=== PATIENT | female | born 1955 | race African-American/Black ===

== ENCOUNTER → 2017-06-18 | Outpatient (CLI) | payer BC ==
[2017-06-18 16:34] LABS: ABSOLUTE BASOPHILS # (AUTO) 0.1 10^3/uL (0.0-0.2); ABSOLUTE EOSINOPHILS # (AUTO) 0.3 10^3/uL (0.0-0.6); ABSOLUTE LYMPHOCYTES (AUTO) 3.7 10^3/uL (0.5-4.7); ABSOLUTE MONOCYTES (AUTO) 0.5 10^3/uL (0.1-1.4); ABSOLUTE NEUT (AUTO) 3.9 10^3/uL (1.7-8.2); EOSINOPHILS % (AUTO) 3.3 % (0-6); HEMATOCRIT 42.6 % (36.0-47.0); HEMOGLOBIN 14.5 g/dL (12.0-15.5); HGB HCT DIFFERENCE 0.9; LYMPHOCYTES % (AUTO) 43.8 % (13-45); MEAN CORPUSCULAR HEMOGLOBIN 29.6 pg (27.0-33.4); MEAN CORPUSCULAR VOLUME 87 fl (80-97); MONOCYTES % (AUTO) 6.4 % (3-13); RED BLOOD COUNT 4.89 10^6/uL (3.72-5.28); RED CELL DISTRIBUTION WIDTH 13.8 % (11.5-14.0); SEGMENTED NEUTROPHILS % (AUTO) 45.5 % (42-78); WHITE BLOOD COUNT 8.6 10^3/uL (4.0-10.5)
[2017-06-18 16:55] LABS: ALANINE AMINOTRANSFERASE 26 U/L (9-52); ALBUMIN 4.4 g/dL (3.5-5.0); ALKALINE PHOSPHATASE 98 U/L (38-126); ANION GAP 12 (5-19); ASPARTATE AMINO TRANSFERASE 21 U/L (14-36); BILIRUBIN,DIRECT 0.3 mg/dL (0.0-0.4); BILIRUBIN,TOTAL 0.8 mg/dL (0.2-1.3); BLOOD UREA NITROGEN 16 mg/dL (7-20); CALCIUM 9.6 mg/dL (8.4-10.2); CARBON DIOXIDE 29 mmol/L (22-30); CHLORIDE 103 mmol/L (98-107); GLUCOSE 86 mg/dL (75-110); POTASSIUM 4.3 mmol/L (3.6-5.0); SODIUM 143.9 mmol/L (137-145); TOTAL PROTEIN 7.8 g/dL (6.3-8.2)
[2017-06-19 11:36] LABS: CHOLESTEROL 253.35 mg/dL (0-200); Direct HDL 60 mg/dL (>40); TRIGLYCERIDES 178 mg/dL (<150)
[2017-06-19 11:47] LABS: DIRECT LDL 144 mg/dL (<100)
[2017-06-19 11:51] LABS: VLDL CHOLESTEROL 35.6 mg/dL (10-31)
== END ==
LOC: LAB 15:59
PROVIDERS: ATTEND Internal Medicine Geriatric Medicine
DX: I10 Essential (primary) hypertension (principal); E78.5 Hyperlipidemia, unspecified
CPT/HCPCS: 36415; 80053; 80061; 85025

== ENCOUNTER → 2017-10-18 | Outpatient (CLI) | payer BC ==
[2017-10-18 13:17] LABS: FREE T3 3.94 pg/mL (2.77-5.27)
[2017-10-18 13:30] LABS: THYROID STIMULATING HORMONE 0.86 uIU/mL (0.47-4.68)
== END ==
LOC: LAB 12:18
PROVIDERS: ATTEND Internal Medicine Geriatric Medicine
DX: E04.1 Nontoxic single thyroid nodule (principal)
CPT/HCPCS: 36415; 84439; 84443; 84481

== ENCOUNTER → 2017-10-22 | Outpatient (CLI) | payer BC ==
--- NOTE | 2017-10-22 12:06 | RADIOLOGY REPORT (SQ) ---
EXAM DESCRIPTION: U/S THYROID/SFT TISS HD NECK COMPLETED DATE/TIME: 10/22/2017 11:51 am REASON FOR STUDY: NONTOXIC SINGLE THYROID NODULE (E04.1) E04.1 NONTOXIC SINGLE THYROID NODULE COMPARISON: None. TECHNIQUE: Dynamic and static huerta-scale images acquired of the thyroid gland. Selected additional c olor/power Doppler images recorded. All images stored to PACS. LIMITATIONS: None. FINDINGS: RIGHT LOBE: Right lobe thyroid is 5.1 by 1.7 by 1.7 cm in size. Heterogeneous echogenicit y. In the medial aspect of the right lobe thyroid extending into the isthmus, a 1.7 x 1.7 x 0.6 cm n odule is present. LEFT LOBE: Left lobe thyroid is 4.5 by 1.9 by 2 cm in size. Heterogeneous echogenicity. In the lowe r aspect left lobe thyroid, a 2.2 x 1.3 x 1.5 cm cystic nodule is present. A smaller 5 x 6 x 3 mm hy podense nodule is present in the left mid pole thyroid ISTHMUS: Normal size. Homogeneous echotexture. OTHER: No other significant finding. IMPRESSION: Normal size thyroid gland with a 1.7 cm nodule in the medial aspect right lobe thyroid a nd a 2.2 cm complex cysts in the lower pole left lobe thyroid. Fine-needle aspiration of these areas should be considered TECHNICAL DOCUMENTATION: JOB ID: [id number] [employer]- All Rights Reserved
== END ==
LOC: RAD 10:48
PROVIDERS: ATTEND Internal Medicine Geriatric Medicine
DX: E04.1 Nontoxic single thyroid nodule (principal)
CPT/HCPCS: 76536

== ENCOUNTER → 2017-11-06 | Day surgery (SDC) | payer BC ==
--- NOTE | 2017-11-06 16:18 | RADIOLOGY REPORT (SQ) ---
EXAM DESCRIPTION: U/S BIOPSY THYROID COMPLETED DATE/TIME: 11/06/2017 2:48 pm REASON FOR STUDY: NONTOXIC SINGLE THYROID NODULE E04.1 NONTOXIC SINGLE THYROID NODULE COMPARISON: None. TECHNIQUE: The procedure was discussed with the patient and written informed consent obtained. A ti meout was performed to confirm the procedure and patient's identity. The skin of the neck was preppe d and draped in sterile fashion and 5 mL lidocaine administered for local anesthesia. Under sonograp hic guidance, fine needle aspiration biopsy was performed of the mass in the left lobe of the thyroid . Using similar technique, fine-needle aspiration biopsy also performed of the mass in the right lob e of the thyroid. Two separate aspirations were performed for both biopsy procedures. Pathology territory manager general sales was p resent during the procedure to process the samples. Hemostasis was obtained with direct manual compr ession. There were no immediate complications. LIMITATIONS: None. FINDINGS: PATHOLOGY: Pending. IMPRESSION: ULTRASOUND-GUIDED BIOPSY PERFORMED OF MASSES IN THE RIGHT AND LEFT LOBES OF THE THYROID. PATHOLOGY PENDING AT THE TIME OF DICTATION. COMMENT: Patient medication list reviewed: Yes- Quality ID# [id number]:Eligible professional attests to doc umenting in the medical record they obtained, updated, or reviewed the patient's current medications. TECHNICAL DOCUMENTATION: JOB ID: [id number] [employer]- All Rights Reserved
== END ==
LOC: RAD 12:51
PROVIDERS: ATTEND Internal Medicine Geriatric Medicine
PROC: 0BBM3ZX Excision of Bilateral Lungs, Percutaneous Approach, Diagnostic (ICD-10-PCS; principal; 2017-11-06)
DX: E04.1 Nontoxic single thyroid nodule (principal)
CPT/HCPCS: 60100; 88173

== ENCOUNTER 2017-11-18 19:33 | Emergency (ER) | payer BC ==
--- NOTE | 2017-11-18 20:07 | ER Document Report ---
ED Medical Screen (RME) - General Chief Complaint: Arm Pain Stated Complaint: ARM AND NECK PAIN Time Seen by Provider: 11/18/17 20:06 Notes: Patient presents with left-sided arm neck and face pain. She states she did have a heart catheterization approximately 20 years ago that was negative but no recent evaluations. TRAVEL OUTSIDE OF THE [place] IN LAST 30 DAYS: No - Related Data Allergies/Adverse Reactions: No Known Allergies Allergy (Unverified 06/25/12 21:58) Home Medications: Current Home Medications Multivit with Calcium,Iron,Min [Multiple Vitamins For Women] 1 each PO DAILY [History] Past Medical History - Social History Chew tobacco use (# tins/day): No Frequency of alcohol use: None Drug Abuse: None - Past Medical History Cardiac Medical History: Reports: Hx Hypercholesterolemia, Hx Hypertension Renal/ Medical History: Denies: Hx Peritoneal Dialysis Past Surgical History: Reports: Hx Cardiac Catheterization, Hx Section - Immunizations Hx Diphtheria, Pertussis, Tetanus Vaccination: No Physical Exam - Vital signs Vitals: Temp Pulse Resp BP Pulse Ox 97.9 F 66 16 175/82 H 97 11/18/17 19:47 11/18/17 19:47 11/18/17 19:47 11/18/17 19:47 11/18/17 19:47 Course - Vital Signs Vital signs: Temp Pulse Resp BP Pulse Ox 97.9 F 66 16 175/82 H 97 11/18/17 19:47 11/18/17 19:47 11/18/17 19:47 11/18/17 19:47 11/18/17 19:47
[2017-11-18 20:25] LABS: ABSOLUTE EOSINOPHILS # (AUTO) 0.3 10^3/uL (0.0-0.6); ABSOLUTE LYMPHOCYTES (AUTO) 3.4 10^3/uL (0.5-4.7); ABSOLUTE MONOCYTES (AUTO) 0.5 10^3/uL (0.1-1.4); ABSOLUTE NEUT (AUTO) 2.8 10^3/uL (1.7-8.2); BASOPHILS % (AUTO) 0.7 % (0-2); EOSINOPHILS % (AUTO) 4.3 % (0-6); HEMATOCRIT 41.3 % (36.0-47.0); HEMOGLOBIN 14.4 g/dL (12.0-15.5); HGB HCT DIFFERENCE 1.9; LYMPHOCYTES % (AUTO) 48.5 % (13-45); MEAN CORPUSCULAR HEMOGLOBIN 30.5 pg (27.0-33.4); MEAN CORPUSCULAR VOLUME 87 fl (80-97); MONOCYTES % (AUTO) 6.5 % (3-13); RED BLOOD COUNT 4.74 10^6/uL (3.72-5.28); RED CELL DISTRIBUTION WIDTH 13.4 % (11.5-14.0); WHITE BLOOD COUNT 7.1 10^3/uL (4.0-10.5)
[2017-11-18 20:50] LABS: ALANINE AMINOTRANSFERASE 32 U/L (9-52); ALBUMIN 4.4 g/dL (3.5-5.0); ALKALINE PHOSPHATASE 96 U/L (38-126); ANION GAP 9 (5-19); ASPARTATE AMINO TRANSFERASE 25 U/L (14-36); BILIRUBIN,DIRECT 0.1 mg/dL (0.0-0.4); BLOOD UREA NITROGEN 14 mg/dL (7-20); CALCIUM 9.4 mg/dL (8.4-10.2); CARBON DIOXIDE 34 mmol/L (22-30); CHLORIDE 102 mmol/L (98-107); CREATININE RESULT 0.82 mg/dL (0.52-1.25); GLUCOSE 94 mg/dL (75-110); POTASSIUM 3.7 mmol/L (3.6-5.0); SODIUM 144.7 mmol/L (137-145); TOTAL PROTEIN 7.2 g/dL (6.3-8.2)
[2017-11-18] MEDS ORDERED: ASPIRIN 81 MG TABLET, CHEWABLE PO ONE (22:12)
--- NOTE | 2017-11-18 22:12 | ER Document Report ---
ED General - General Chief Complaint: Arm Pain Stated Complaint: ARM AND NECK PAIN Time Seen by Provider: 11/18/17 20:06 Notes: Patient is a 62-year-old female who presents with left-sided face, neck, and arm pain and paresthesias that started abruptly at approximately 6:30 PM today and have now spontaneously resolved. She states that the pain was a throbbing, aching, pins and needles sensation most localized to her left dorsal forearm. She states that the symptoms of spontaneously resolved without intervention. She is uncertain of what triggered or worsened the symptoms. She denies a history of similar symptoms in the past. She denies any history of RI or stroke in the past. She has not seen a primary care doctor regarding today's concerns. She denies any associated shortness of breath, vomiting or diaphoresis. No chest pain. She denies any headache or altered mental status. TRAVEL OUTSIDE OF THE [place] IN LAST 30 DAYS: No - Related Data Allergies/Adverse Reactions: No Known Allergies Allergy (Unverified 06/25/12 21:58) Past Medical History - General Information source: Patient - Social History Smoking Status: Never Smoker Chew tobacco use (# tins/day): No Frequency of alcohol use: None Drug Abuse: None Lives with: Spouse/Significant other Family History: Reviewed & Not Pertinent Patient has suicidal ideation: No Patient has homicidal ideation: No - Past Medical History Cardiac Medical History: Reports: Hx Hypercholesterolemia, Hx Hypertension Renal/ Medical History: Denies: Hx Peritoneal Dialysis Past Surgical History: Reports: Hx Cardiac Catheterization, Hx Section - Immunizations Hx Diphtheria, Pertussis, Tetanus Vaccination: No Review of Systems - Review of Systems Notes: Constitutional: Negative for fever. HENT: Negative for sore throat. Eyes: Negative for visual changes. Cardiovascular: Negative for chest pain. Respiratory: Negative for shortness of breath. Gastrointestinal: Negative for abdominal pain, vomiting or diarrhea. Genitourinary: Negative for dysuria. Musculoskeletal: Negative for back pain. Skin: Negative for rash. Neurological: Negative for headaches, positive for paresthesias of the left upper extremity and face 10 point ROS negative except as marked above and in HPI. Physical Exam - Vital signs Vitals: Temp Pulse Resp BP Pulse Ox 97.9 F 66 16 175/82 H 97 11/18/17 19:47 11/18/17 19:47 11/18/17 19:47 11/18/17 19:47 11/18/17 19:47 Interpretation: Hypertensive Notes: PHYSICAL EXAMINATION: GENERAL: Well-appearing, well-nourished and in no acute distress. HEAD: Atraumatic, normocephalic. EYES: Pupils equal round and reactive to light, extraocular movements intact, sclera anicteric, conjunctiva are normal. ENT: nares patent, oropharynx clear without exudates. Moist mucous membranes. NECK: Normal range of motion, supple without lymphadenopathy LUNGS: Breath sounds clear to auscultation bilaterally and equal. No wheezes rales or rhonchi. HEART: Regular rate and rhythm without murmurs ABDOMEN: Soft, nontender, normoactive bowel sounds. No guarding, no rebound. No masses appreciated. EXTREMITIES: Normal range of motion, no pitting or edema. No cyanosis. NEUROLOGICAL: Face symmetric. Tongue protrudes midline. Extraocular motions intact. Pupils are 2 mm and equally reactive. Normal speech, normal gait. 5 out of 5 strength in both the distal and proximal upper and lower extremities bilaterally. Sensation is grossly intact throughout. Finger to nose testing normal. Pronator drift normal. PSYCH: Normal mood, normal affect. SKIN: Warm, Dry, normal turgor, no rashes or lesions noted. Course - Re-evaluation Re-evalutation: 11/18/17 22:09 Patient presents with left arm and facial pain that has now resolved. The patient's characterization of the symptoms is not consistent with a transient ischemic attack as she describes it more of a pins and needle sensation as well as a throbbing pain most notably to her left forearm. She denies any associated symptoms clinic facial droop, dysarthria, aphasia, weakness, or altered sensorium in any other area of her body. Her symptoms have spontaneously resolved making an acute stroke by definition excluded. Her neuro exam at the time of my assessment is completely normal with an NIH stroke scale of 0. Although TIA is a possibility, I have overall low clinical suspicion for that diagnosis as the patient describes her symptoms as being painful rather than the loss of sensation which goes against an acute stroke. An atypical presentation of ACS is also a consideration. Patient did not have any chest pain, nausea, vomiting or diaphoresis but did have left upper extremity discomfort. The facial component of her symptoms would be quite atypical for this. However, will obtain serial troponins to exclude an infarction event. If this remains normal will plan for discharge with recommendations for an outpatient carotid Doppler to be completed. The patient and her family at the bedside are in agreement with this plan. I have also encouraged the patient to begin taking a daily aspirin as she should already be taking this medication given her risk factors. 11/18/17 23:49 Delta troponin remains negative. Patient remains asymptomatic. At this time will discharge with return precautions and follow-up recommendations. Verbal discharge instructions given a the bedside and opportunity for questions given. Medication warnings reviewed. Patient is in agreement with this plan and has verbalized understanding of return precautions and the need for primary care follow-up in the next 24-72 hours. - Vital Signs Vital signs: Temp Pulse Resp BP Pulse Ox 97.9 F 64 16 148/83 H 99 11/18/17 19:47 11/18/17 23:08 11/18/17 23:08 11/18/17 23:08 11/18/17 23:08 - Laboratory Result Diagrams: 11/18/17 20:08 11/18/17 20:08 Laboratory results interpreted by me: 11/18/17 11/18/17 20:08 20:08 Seg Neutrophils % 40.0 L Lymphocytes % 48.5 H Carbon Dioxide 34 H - EKG Interpretation by Me Additional EKG results interpreted by me: 11/18/17 23:50 Normal sinus rhythm. Rate 67. No ST elevations or depressions. QTC is 439. Discharge - Discharge Clinical Impression: Left arm pain, Paresthesias Condition: Good Disposition: HOME, SELF-CARE Additional Instructions: Your labs are all normal today. The exact cause of your symptoms is uncertain at this time but does not appear to be related to any life-threatening cause. Please follow-up with your primary care doctor as scheduled tomorrow and please request a carotid Doppler study to be completed. Begin taking an aspirin 81 mg daily. Return if you develop chest pain, shortness of breath, vomiting, recurrence of your symptoms, or any other symptoms that are worrisome to you. Referrals: JAVIER CORONA MD [Primary Care Provider] - Follow up as needed
[2017-11-18 23:09] VITALS: BP 148/83
--- NOTE | 2017-11-19 07:57 | EKG REPORT ---
SEVERITY:- BORDERLINE ECG - SINUS RHYTHM PROBABLE LEFT ATRIAL ABNORMALITY : Confirmed by: Timur Rehman MD 19-Nov-2017 07:56:23
== END 2017-11-19 00:07 | disposition home or self-care (01) ==
LOC: ER 19:33
DX: M79.602 Pain in left arm (principal); R20.2 Paresthesia of skin; R51 Headache; M54.2 Cervicalgia; I10 Essential (primary) hypertension
CPT/HCPCS: 36415; 80053; 84484; 85025; 93005; 93010; 99284

== ENCOUNTER → 2017-11-21 | Outpatient (CLI) | payer BC ==
--- NOTE | 2017-11-21 10:19 | RADIOLOGY REPORT (SQ) ---
EXAM DESCRIPTION: CAROTID DOPPLER COMPLETED DATE/TIME: 11/21/2017 8:27 am REASON FOR STUDY: PARASTHESIA OF SKIN R20.2 PARESTHESIA OF SKIN COMPARISON: None. TECHNIQUE: Grayscale ultrasound, Doppler velocity and spectra, and color Doppler images acquired of the extra-cranial carotid and vertebral arteries. Images stored on PACS. LIMITATIONS: None. FINDINGS: RIGHT CAROTID CCA Velocities: Within normal limits. ICA Velocities Peak systolic 0.7 m/s. End diastolic 0.26 m/s. Proximal ICA/CCA peak systolic ratio 0.8. Spectra normal. No significant plaque. LEFT CAROTID CCA Velocities: Within normal limits. ICA Velocities Peak systolic 0.6 m/s. End diastolic 0.22 m/s. Proximal ICA/CCA peak systolic ratio 1.0. Spectra normal. No significant plaque. VERTEBRAL ARTERIES: Antegrade flow. Normal waveforms. SUBCLAVIAN ARTERIES: Not examined OTHER: No other significant finding. IMPRESSION: NO HEMODYNAMICALLY SIGNIFICANT STENOSIS. COMMENT: Quality ID #[id number]: Velocity criteria are extrapolated from the diameter data as defined by t he Society of Radiologists in Ultrasound Consensus Conference. Radiology 2003: 229; 340-346. TECHNICAL DOCUMENTATION: JOB ID: [id number] [employer]- All Rights Reserved
== END ==
LOC: SP 07:45
PROVIDERS: ATTEND Internal Medicine Geriatric Medicine
DX: R20.2 Paresthesia of skin (principal)
CPT/HCPCS: 93880

== ENCOUNTER → 2017-11-26 | Outpatient (CLI) | payer BC ==
--- NOTE | 2017-11-26 10:29 | WOMENS IMAGING REPORT ---
EXAM DESCRIPTION: 3D SCREENING MAMMO BILAT COMPLETED DATE/TIME: 11/26/2017 9:51 am REASON FOR STUDY: SCREENING MAMMO Z12.31 ENCNTR SCREEN MAMMOGRAM FOR MALIGNANT NEOPLASM OF DRE COMPARISON: 07/30/2016 and 08/31/2014. TECHNIQUE: Standard craniocaudal and mediolateral oblique views of each breast recorded using digita l acquisition and breast tomosynthesis. LIMITATIONS: None. FINDINGS: No masses, calcifications or architectural distortion. No areas of suspicion. Read with the assistance of CAD. .[facility] - R2 [employer] Version 1.3 .[facility] Imaging - R2 [employer] Version 1.[address] .[facility] Imaging - R2 [employer] Version 2.4 .[facility] [place] [employer] Version 2.4 .[facility] - R2 [employer] Worker Version 9.2 IMPRESSION: NORMAL MAMMOGRAM. BIRADS 1. BREAST DENSITY: b. There are scattered areas of fibroglandular density. BIRAD: 1 NEGATIVE RECOMMENDATION: ROUTINE SCREENING COMMENT: The patient has been notified of the results by letter per SA requirements. Additional no tification policies are in place for contacting patient with suspicious or incomplete findings. Quality ID #[id number]: The [employer] recommends an annual screening mammogram for women aged 40 years or over. This facility utilizes a reminder system to ensure that all patients receive reminder letters, and/or direct phone calls for appointments. This includes reminders for routine scr eening mammograms, diagnostic mammograms, or other Breast Imaging Interventions when appropriate. Th is patient will be placed in the appropriate reminder system. The [employer] (ACR) has developed recommendations for screening MRI of the breast s in certain patient populations, to be used in conjunction with mammography. Breast MRI surveillanc e may be appropriate for women with more than 20% lifetime risk of developing breast cancer as deter mined by genetic testing, significant family history of the disease, or history of mantle radiation f or Hodgkins Disease. ACR Practice Guidelines 2008. DBT Technology DBT is a type of tomographic mammography. With conventional mammography, overlapping breast tissue ma y make lesions difficult to detect, even with good compression. DBT uses an x-ray tube that rotates a round the breast, taking images at different angles. These images are then combined to create thin sl ices of the breast that the radiologist can view as a 3D reconstruction. The [employer] unit can perform full-field digital mammograms (2D imaging); or DBT (3D imaging); or both, in a combination mode that quickly performs both the mammogram and the tomosynthesis scan while the breast is still compressed. PQRS 6045F: Fluoroscopic imaging is not utilized for breast tomosynthesis. TECHNICAL DOCUMENTATION: FINDING NUMBER: (1) ASSESSMENT: (1) JOB ID: [id number] [employer]- All Rights Reserved
== END ==
LOC: WI 09:34
PROVIDERS: ATTEND Internal Medicine Geriatric Medicine
DX: Z12.31 Encounter for screening mammogram for malignant neoplasm of breast (principal)
CPT/HCPCS: 77063; G0202; 77067

== ENCOUNTER 2019-07-12 17:30 | Inpatient (IN) | payer BC ==
[2019-07-12] MEDS ORDERED: ONDANSETRON HCL INJ/PF 4 MG/2 ML SDV IV PRN (18:03)
[2019-07-12 19:28] LABS: HEMATOCRIT 38.7 % (36.0-47.0); HEMOGLOBIN 13.3 g/dL (12.0-15.5); MEAN CORPUSCULAR HEMOGLOBIN 29.4 pg (27.0-33.4); MEAN CORPUSCULAR HGB CONC 34.5 g/dL (32.0-36.0); MEAN CORPUSCULAR VOLUME 85 fl (80-97); PLATELET COUNT 268 10^3/uL (150-450); RED BLOOD COUNT 4.54 10^6/uL (3.72-5.28); RED CELL DISTRIBUTION WIDTH 14.1 % (11.5-14.0); WHITE BLOOD COUNT 16.4 10^3/uL (4.0-10.5)
[2019-07-12] MEDS ORDERED: VANCOMYCIN HCL INJ 500 MG VIAL IV SCH (19:30)
[2019-07-12 19:43] LABS: ALBUMIN 4.2 g/dL (3.5-5.0); ALKALINE PHOSPHATASE 99 U/L (38-126); ANION GAP 11 (5-19); ASPARTATE AMINO TRANSFERASE 23 U/L (14-36); BILIRUBIN,DIRECT 0.2 mg/dL (0.0-0.4); BLOOD UREA NITROGEN 19 mg/dL (7-20); CALCIUM 9.1 mg/dL (8.4-10.2); CARBON DIOXIDE 30 mmol/L (22-30); CHLORIDE 97 mmol/L (98-107); GLUCOSE 123 mg/dL (75-110); POTASSIUM 3.4 mmol/L (3.6-5.0); TOTAL PROTEIN 7.1 g/dL (6.3-8.2)
[2019-07-12 19:54] LABS: ABSOLUTE LYMPHOCYTES# (MANUAL) 0.7 10^3/uL (0.5-4.7); ABSOLUTE MONOCYTES # (MANUAL) 0.2 10^3/uL (0.1-1.4); BAND NEUTROPHILS % (MANUAL) 3 % (3-5); BASOPHILS % (MANUAL) 0 % (0-2); EOSINOPHILS % (MANUAL) 0 % (0-6); LYMPHOCYTES % (MANUAL) 4 % (13-45); MONOCYTES % (MANUAL) 1 % (3-13); RBC MORPHOLOGY COMMENT NORMO-CYTIC/CHROMIC; SEGMENTED NEUTROPHILS % (MAN) 92 % (42-78); TOTAL CELLS COUNTED 100
[2019-07-12 19:55] LABS: PLATELET COMMENT ADEQUATE
[2019-07-12 23:48] LABS: APPEARANCE,URINE CLEAR; BILIRUBIN,URINE NEGATIVE (NEGATIVE); COLOR,URINE YELLOW; GLUCOSE, URINE NEGATIVE (NEGATIVE); KETONES,URINE NEGATIVE (NEGATIVE); LEUKOCYTE ESTERASE,URINE NEGATIVE (NEGATIVE); NITRITE,URINE NEGATIVE (NEGATIVE); PROTEIN,URINE NEGATIVE (NEGATIVE); URINE SPECIFIC GRAVITY 1.017; UROBILINOGEN,URINE NEGATIVE mg/dL (<2.0)
[2019-07-13] MEDS: VANCOMYCIN HCL INJ 500 MG VIAL PO SCH ×5 (00:22→23:37)
[2019-07-13] MEDS ORDERED: CEFEPIME 1 GM/D5W RTU 1 GM/50 ML RTUPB IV ONE (00:30)
--- NOTE | 2019-07-13 00:59 | PDOC H&P ---
History of Present Illness Admission Date/PCP: 07/12/19 17:30 JAVIER CORONA MD Patient complains of: Fever, chills, Nausea, Vomiting, Diarrhea History of Present Illness: JENNIFER HERNÁNDEZ is a 64 year old female known to my practice who presented to the office earlier today with recurrent intermittent episodes of chills, fever, and diaphoresis mostly during the night with daytime fatigue and tiredness. Patient reported development of diarrhea with multiple episodes of watery stool over the last several days. She was recently treated with antibiotic for po ssible community acquired pneumonia. She reported feeling better but upon completion of her antibiotic therapy her symptoms started again with intermittent fever and chills. She denied any significant coughing or sputum production. She denied any chest pain or shortness of breath. Her initial evalua tion in the office revealed significant leukocytosis with left shift. She was advised hospitalization for possible failure of outpatient oral antibiotic therapy and concern for possible antibiotic associated diarrhea. Her morbidities include hypertension, hyperlipidemia, chronic gouty arthritis. Past Medical History Cardiac Medical History: Reports: Hyperlipidema, Hypertension Musculoskeltal Medical History: Reports: Gout Skin Medical History: Reports: None Psychiatric Medical History: Reports: None Hematology: Reports: None Past Surgical History Past Surgical History: Reports: Cardiac Catheterization, Section Social History Smoking Status: Never Smoker Frequency of Alcohol Use: None Hx Recreational Drug Use: No Drugs: None Hx Prescription Drug Abuse: No - Advance Directive Resuscitation Status: Full Code Family History Family History: Reviewed & Not Pertinent Parental Family History Reviewed: Yes Children Family History Reviewed: Yes Sibling(s) Family History Reviewed.: Yes Medication/Allergy Allergies/Adverse Reactions: No Known Allergies Allergy (Unverified 06/25/12 21:58) Review of Systems Constitutional: PRESENT: chills, fatigue, fever(s), night sweats Eyes: ABSENT: visual disturbances Ears: ABSENT: hearing changes Nose, Mouth, and Throat: ABSENT: as per HPI, headache(s), mouth pain, sore throat, vertigo, other Cardiovascular: ABSENT: chest pain, dyspnea on exertion, edema, orthropnea, palpitations Respiratory: ABSENT: cough, hemoptysis Gastrointestinal: PRESENT: diarrhea, nausea, vomiting Genitourinary: ABSENT: dysuria, hematuria Musculoskeletal: ABSENT: joint swelling Integumentary: ABSENT: rash, wounds Neurological: ABSENT: abnormal gait, abnormal speech, confusion, dizziness, focal weakness, syncope Psychiatric: ABSENT: anxiety, depression, homidical ideation, suicidal ideation Endocrine: ABSENT: cold intolerance, heat intolerance, polydipsia, polyuria Hematologic/Lymphatic: ABSENT: easy bleeding, easy bruising, lymphadenopathy Allergic/Immunologic: ABSENT: seasonal rhinorrhea Physical Exam Vital Signs: Temp Pulse Resp BP Pulse Ox 99.7 F 95 17 147/67 H 98 07/12/19 21:01 07/12/19 21:01 07/12/19 21:01 07/12/19 21:01 07/12/19 21:01 General appearance: PRESENT: obese Head exam: PRESENT: atraumatic, normocephalic Eye exam: PRESENT: conjunctiva pink, EOMI, PERRLA. ABSENT: scleral icterus Ear exam: PRESENT: normal external ear exam Mouth exam: PRESENT: moist Throat exam: ABSENT: post pharyngeal erythema, tonsillar erythema, tonsillar exudate, tonsillogmegaly, other Neck exam: PRESENT: full ROM. ABSENT: carotid bruit, JVD, lymphadenopathy, thyromegaly Respiratory exam: PRESENT: clear to auscultation jefry, decreased breath sounds - at lung bases Cardiovascular exam: PRESENT: RRR, +S1, +S2. ABSENT: diastolic murmur, rubs, systolic murmur Vascular exam: ABSENT: pallor GI/Abdominal exam: PRESENT: normal bowel sounds, soft. ABSENT: distended, guarding, mass, organolmegaly, rebound, tenderness Rectal exam: PRESENT: deferred Extremities exam: ABSENT: pedal edema Musculoskeletal exam: PRESENT: deformity - related to multyiple joints involvement with arthritis Neurological exam: PRESENT: alert, awake, oriented to person, oriented to place, oriented to time, oriented to situation, CN II-XII grossly intact. ABSENT: motor sensory deficit Psychiatric exam: PRESENT: appropriate affect, normal mood. ABSENT: homicidal ideation, suicidal ideation Skin exam: PRESENT: dry, warm Results Laboratory Results: 07/12/19 19:15 07/12/19 19:15 07/12/19 07/12/19 07/12/19 19:15 19:15 21:20 WBC 16.4 H RBC 4.54 Hgb 13.3 Hct 38.7 MCV 85 MCH 29.4 MCHC 34.5 RDW 14.1 H Plt Count 268 Seg Neutrophils % Not Reportable Lymphocytes % Not Reportable Monocytes % Not Reportable Eosinophils % Not Reportable Basophils % Not Reportable Absolute Neutrophils Not Reportable Absolute Lymphocytes Not Reportable Absolute Monocytes Not Reportable Absolute Eosinophils Not Reportable Absolute Basophils Not Reportable Sodium 137.7 Potassium 3.4 L Chloride 97 L Carbon Dioxide 30 Anion Gap 11 BUN 19 Creatinine 1.17 Est GFR ( Amer) 56 L Est GFR (Non-Af Amer) 47 L Glucose 123 H Lactic Acid 2.3 H Calcium 9.1 Total Bilirubin 2.0 H AST 23 Alkaline Phosphatase 99 Total Protein 7.1 Albumin 4.2 Assessment & Plan - Diagnosis (1) Nausea, vomiting and diarrhea Is this a current diagnosis for this admission?: Yes Plan: See admitting attending physician orders for details about care plan. (2) Fever and chills Is this a current diagnosis for this admission?: Yes Plan: See admitting attending physician orders for details about care plan. (3) Probable sepsis Is this a current diagnosis for this admission?: Yes Plan: See admitting attending physician orders for details about care plan. (4) HTN (hypertension) Qualifiers: Hypertension type: essential hypertension Qualified Code(s): I10 - Essential (primary) hypertension Is this a current diagnosis for this admission?: Yes Plan: Continue pre-admission approved medication for management of blood pressure. (5) HLD (hyperlipidemia) Qualifiers: Hyperlipidemia type: unspecified Qualified Code(s): E78.5 - Hyperlipidemia, unspecified Is this a current diagnosis for this admission?: Yes Plan: Continue pre-admission approved medication for management of hyperlipidemia.. (6) Gout, chronic, without tophus Qualifiers: Gout site: unspecified site Is this a current diagnosis for this admission?: Yes Plan: Continue pre-admission approved medication for management of chronic gouty arthritis. - Time Time Spent: 50 to 70 Minutes Medications reviewed and adjusted accordingly: Yes Anticipated discharge: Home Within: Other - Inpatient Certification Based on my medical assessment, after consideration of the patient's comorbidities, presenting symptoms, or acuity I expect that the services needed warrant INPATIENT care.: Yes I certify that my determination is in accordance with my understanding of Medicare's requirements for reasonable and necessary INPATIENT services [42 CFR 412.3e].: Yes Medical Necessity: Significant Comorbidiites Make Outpatient Treatment Too Risky, Need Close Monitoring Due to Risk of Patient Decompensation, Need For IV Fluids, Need For Continuous Telemetry Monitoring, Need for IV Antibiotics, Risk of Complication if Not Cared For in Hospital, Risk of Diagnosis Which Will Require Inpatient Eval/Care/Monitoring Post Hospital Care: D/C Lathing Supervisor Documentation - Plan Summary Plan Summary: See admitting attending physician orders for details about care plan.
[2019-07-13] MEDS ORDERED: LEVOFLOXACIN 500 MG/D5W RTU 500 MG/100 ML RTUPB IV ONE (01:00)
[2019-07-13] MEDS: ACETAMINOPHEN 325 MG TABLET PO PRN (01:18)
[2019-07-13 06:15] LABS: ABSOLUTE LYMPHOCYTES (AUTO) 0.9 10^3/uL (0.5-4.7); ABSOLUTE MONOCYTES (AUTO) 0.4 10^3/uL (0.1-1.4); ABSOLUTE NEUT (AUTO) 7.5 10^3/uL (1.7-8.2); BASOPHILS % (AUTO) 0.4 % (0-2); EOSINOPHILS % (AUTO) 0.2 % (0-6); HEMOGLOBIN 12.5 g/dL (12.0-15.5); LYMPHOCYTES % (AUTO) 10.6 % (13-45); MEAN CORPUSCULAR HEMOGLOBIN 29.5 pg (27.0-33.4); MEAN CORPUSCULAR HGB CONC 34.8 g/dL (32.0-36.0); MEAN CORPUSCULAR VOLUME 85 fl (80-97); MONOCYTES % (AUTO) 4.8 % (3-13); PLATELET COUNT 217 10^3/uL (150-450); RED BLOOD COUNT 4.25 10^6/uL (3.72-5.28); TOTAL CELLS COUNTED % (AUTO) 100 %
[2019-07-13 06:45] LABS: ALBUMIN 3.5 g/dL (3.5-5.0); ALKALINE PHOSPHATASE 87 U/L (38-126); ANION GAP 8 (5-19); ASPARTATE AMINO TRANSFERASE 21 U/L (14-36); BILIRUBIN,DIRECT 0.4 mg/dL (0.0-0.4); BLOOD UREA NITROGEN 13 mg/dL (7-20); CALCIUM 8.6 mg/dL (8.4-10.2); CARBON DIOXIDE 27 mmol/L (22-30); CHLORIDE 104 mmol/L (98-107); GLUCOSE 106 mg/dL (75-110); POTASSIUM 3.3 mmol/L (3.6-5.0); TOTAL PROTEIN 6.3 g/dL (6.3-8.2)
--- NOTE | 2019-07-13 08:26 | RADIOLOGY REPORT (SQ) ---
EXAM DESCRIPTION: CHEST 2 VIEWS COMPLETED DATE/TIME: 07/12/2019 9:27 pm REASON FOR STUDY: Pneumonia COMPARISON: 06/25/2012 EXAM PARAMETERS: NUMBER OF VIEWS: two views TECHNIQUE: Digital Frontal and Lateral radiographic views of the chest acquired. RADIATION DOSE: NA LIMITATIONS: none FINDINGS: LUNGS AND PLEURA: No opacities, masses or pneumothorax. No pleural effusion. MEDIASTINUM AND HILAR STRUCTURES: No masses or contour abnormalities. HEART AND VASCULAR STRUCTURES: Heart normal size. No evidence for failure. BONES: No acute findings. HARDWARE: Prior cholecystectomy. OTHER: No other significant finding. IMPRESSION: No focal consolidation or other evidence of acute cardiopulmonary process. TECHNICAL DOCUMENTATION: JOB ID: [id number] [employer]- All Rights Reserved Reading location - IP/workstation name: [email or web address]
[2019-07-13] MEDS: NORMAL SALINE 1000 ML 1,000 ML IV PRN ×2 (10:40→22:08)
[2019-07-13] MEDS: CEFEPIME 1 GM/D5W RTU 1 GM/50 ML RTUPB IV SCH ×2 (10:40→22:07)
--- NOTE | 2019-07-13 18:13 | PDOC PROGRESS REPORT ---
Subjective Progress Note for:: 07/13/19 Subjective:: Patient had no diarrhea since admission. There was reported elevated temperature last night. She denied any chest pain or difficulty with breathing. No abdominal pain, nausea or vomiting. No dysuria or flank pain. She denied any headache or dizziness. No sinus pain or congestion. Reason For Visit: FAILED OUTPATIENT TREATMENT FOR PNEUMONIA Physical Exam Vital Signs: Temp Pulse Resp BP Pulse Ox 102.1 F H 87 17 134/66 H 97 07/13/19 00:59 07/13/19 07:00 07/13/19 00:59 07/13/19 00:59 07/13/19 00:59 Intake & Output 07/12/19 07/13/19 07/14/19 06:59 06:59 06:59 Intake Total 150 Balance 150 Weight 79.5 kg General appearance: PRESENT: no acute distress, obese Head exam: PRESENT: atraumatic, normocephalic Eye exam: PRESENT: conjunctiva pink, EOMI, PERRLA. ABSENT: scleral icterus Ear exam: PRESENT: normal external ear exam Mouth exam: PRESENT: moist Respiratory exam: PRESENT: chest wall tenderness Cardiovascular exam: PRESENT: RRR. ABSENT: diastolic murmur, rubs, systolic murmur Vascular exam: ABSENT: pallor GI/Abdominal exam: PRESENT: normal bowel sounds, soft. ABSENT: distended, guarding, mass, organolmegaly, rebound, tenderness Extremities exam: ABSENT: pedal edema Neurological exam: PRESENT: alert, awake, oriented to person, oriented to place, oriented to time, oriented to situation, CN II-XII grossly intact. ABSENT: motor sensory deficit Psychiatric exam: PRESENT: appropriate affect, normal mood. ABSENT: homicidal ideation, suicidal ideation Skin exam: PRESENT: dry, warm Results Laboratory Results: 07/13/19 05:55 07/13/19 05:55 07/12/19 07/12/19 07/12/19 19:15 19:15 21:20 WBC 16.4 H RBC 4.54 Hgb 13.3 Hct 38.7 MCV 85 MCH 29.4 MCHC 34.5 RDW 14.1 H Plt Count 268 Seg Neutrophils % Not Reportable Lymphocytes % Not Reportable Monocytes % Not Reportable Eosinophils % Not Reportable Basophils % Not Reportable Absolute Neutrophils Not Reportable Absolute Lymphocytes Not Reportable Absolute Monocytes Not Reportable Absolute Eosinophils Not Reportable Absolute Basophils Not Reportable Sodium 137.7 Potassium 3.4 L Chloride 97 L Carbon Dioxide 30 Anion Gap 11 BUN 19 Creatinine 1.17 Est GFR ( Amer) 56 L Est GFR (Non-Af Amer) 47 L Glucose 123 H Lactic Acid 2.3 H Calcium 9.1 Total Bilirubin 2.0 H AST 23 Alkaline Phosphatase 99 Total Protein 7.1 Albumin 4.2 Urine Color Urine Appearance Urine pH Ur Specific [place] Urine Protein Urine Glucose (UA) Urine Ketones Urine Blood Urine Nitrite Ur Leukocyte Esterase Urine WBC (Auto) Urine RBC (Auto) 07/12/19 07/13/19 07/13/19 23:15 01:27 05:55 WBC 9.0 RBC 4.25 Hgb 12.5 Hct 36.0 MCV 85 MCH 29.5 MCHC 34.8 RDW 14.0 Plt Count 217 Seg Neutrophils % 84.0 H Lymphocytes % 10.6 L Monocytes % 4.8 Eosinophils % 0.2 Basophils % 0.4 Absolute Neutrophils 7.5 Absolute Lymphocytes 0.9 Absolute Monocytes 0.4 Absolute Eosinophils 0.0 Absolute Basophils 0.0 Sodium Potassium Chloride Carbon Dioxide Anion Gap BUN Creatinine Est GFR ( Amer) Est GFR (Non-Af Amer) Glucose Lactic Acid 1.1 Calcium Total Bilirubin AST Alkaline Phosphatase Total Protein Albumin Urine Color YELLOW Urine Appearance CLEAR Urine pH 6.0 Ur Specific [place] 1.017 Urine Protein NEGATIVE Urine Glucose (UA) NEGATIVE Urine Ketones NEGATIVE Urine Blood NEGATIVE Urine Nitrite NEGATIVE Ur Leukocyte Esterase NEGATIVE Urine WBC (Auto) 2 Urine RBC (Auto) 1 07/13/19 05:55 WBC RBC Hgb Hct MCV MCH MCHC RDW Plt Count Seg Neutrophils % Lymphocytes % Monocytes % Eosinophils % Basophils % Absolute Neutrophils Absolute Lymphocytes Absolute Monocytes Absolute Eosinophils Absolute Basophils Sodium 139.3 Potassium 3.3 L Chloride 104 Carbon Dioxide 27 Anion Gap 8 BUN 13 Creatinine 0.80 Est GFR ( Amer) > 60 Est GFR (Non-Af Amer) > 60 Glucose 106 Lactic Acid Calcium 8.6 Total Bilirubin 2.0 H AST 21 Alkaline Phosphatase 87 Total Protein 6.3 Albumin 3.5 Urine Color Urine Appearance Urine pH Ur Specific [place] Urine Protein Urine Glucose (UA) Urine Ketones Urine Blood Urine Nitrite Ur Leukocyte Esterase Urine WBC (Auto) Urine RBC (Auto) Assessment & Plan - Diagnosis (1) Nausea, vomiting and diarrhea Is this a current diagnosis for this admission?: Yes (2) Fever and chills Is this a current diagnosis for this admission?: Yes (3) Probable sepsis Is this a current diagnosis for this admission?: Yes (4) HTN (hypertension) Qualifiers: Hypertension type: essential hypertension Qualified Code(s): I10 - Essential (primary) hypertension Is this a current diagnosis for this admission?: Yes (5) HLD (hyperlipidemia) Qualifiers: Hyperlipidemia type: unspecified Qualified Code(s): E78.5 - Hyperlipidemia, unspecified Is this a current diagnosis for this admission?: Yes (6) Gout, chronic, without tophus Qualifiers: Gout site: unspecified site Is this a current diagnosis for this admission?: Yes (7) Hypokalemia due to loss of potassium Is this a current diagnosis for this admission?: Yes Plan: Start on oral potassium supplementation. - Time Time Spent with patient: 25-34 minutes Medications reviewed and adjusted accordingly: Yes Anticipated discharge: Home Within: Other - Inpatient Certification Based on my medical assessment, after consideration of the patient's comorbidities, presenting symptoms, or acuity I expect that the services needed warrant INPATIENT care.: Yes I certify that my determination is in accordance with my understanding of Medicare's requirements for reasonable and necessary INPATIENT services [42 CFR 412.3e].: Yes Medical Necessity: Significant Comorbidiites Make Outpatient Treatment Too Risky, Need Close Monitoring Due to Risk of Patient Decompensation, Need For IV Fluids, Need For Continuous Telemetry Monitoring, Need for IV Antibiotics, Risk of Complication if Not Cared For in Hospital, Risk of Diagnosis Which Will Require Inpatient Eval/Care/Monitoring Post Hospital Care: D/C Marketing Services Coordinator Documentation - Plan Summary Plan Summary: Continue IV Cefepime and Levofloxacin coverage. Follow up on blood culture and stool evaluation. Potassium replacement in progress. Obtain BMP, CBC with diff and Mag in am.
[2019-07-13] MEDS: POTASSIUM CHLORIDE 20 MEQ PACKET PO SCH ×2 (18:36→22:08)
[2019-07-13] MEDS ORDERED: LEVOFLOXACIN 500 MG/D5W RTU 500 MG/100 ML RTUPB IV SCH (22:00)
[2019-07-14] MEDS: VANCOMYCIN HCL INJ 500 MG VIAL PO SCH ×3 (05:41→17:32)
[2019-07-14 05:58] LABS: HEMATOCRIT 36.1 % (36.0-47.0); HEMOGLOBIN 12.6 g/dL (12.0-15.5); MEAN CORPUSCULAR HEMOGLOBIN 29.6 pg (27.0-33.4); MEAN CORPUSCULAR HGB CONC 34.9 g/dL (32.0-36.0); MEAN CORPUSCULAR VOLUME 85 fl (80-97); PLATELET COUNT 196 10^3/uL (150-450); RED BLOOD COUNT 4.26 10^6/uL (3.72-5.28); RED CELL DISTRIBUTION WIDTH 14.1 % (11.5-14.0); WHITE BLOOD COUNT 4.7 10^3/uL (4.0-10.5)
[2019-07-14 06:13] LABS: ANION GAP 8 (5-19); BLOOD UREA NITROGEN 6 mg/dL (7-20); CALCIUM 8.6 mg/dL (8.4-10.2); CARBON DIOXIDE 26 mmol/L (22-30); CHLORIDE 106 mmol/L (98-107); GLUCOSE 110 mg/dL (75-110); POTASSIUM 4.1 mmol/L (3.6-5.0)
[2019-07-14 06:34] LABS: ABSOLUTE LYMPHOCYTES# (MANUAL) 1.4 10^3/uL (0.5-4.7); ABSOLUTE MONOCYTES # (MANUAL) 0.5 10^3/uL (0.1-1.4); BASOPHILS % (MANUAL) 0 % (0-2); EOSINOPHILS % (MANUAL) 3 % (0-6); HYPOCHROMASIA SLIGHT; LYMPHOCYTES % (MANUAL) 30 % (13-45); MONOCYTES % (MANUAL) 11 % (3-13); PLATELET COMMENT ADEQUATE; SEGMENTED NEUTROPHILS % (MAN) 56 % (42-78); TOTAL CELLS COUNTED 100
--- NOTE | 2019-07-14 06:47 | PDOC PROGRESS REPORT ---
Subjective Progress Note for:: 07/14/19 Subjective:: Patient had diarrhea episodes of since last clinical evaluation. No abdominal pain, nausea or vomiting. No chest pain or difficulty with breathing. Reason For Visit: FAILED OUTPATIENT TREATMENT FOR PNEUMONIA Physical Exam Vital Signs: Temp Pulse Resp BP Pulse Ox 99.3 F 88 18 137/63 H 99 07/13/19 15:59 07/14/19 02:00 07/13/19 15:59 07/13/19 15:59 07/13/19 15:59 Intake & Output 07/12/19 07/13/19 07/14/19 06:59 06:59 06:59 Intake Total 150 1820 Output Total 800 Balance 150 1020 Weight 79.5 kg 75.9 kg Physical Exam: General appearance: PRESENT: no acute distress, obese Head exam: PRESENT: atraumatic, normocephalic Eye exam: PRESENT: conjunctiva pink, EOMI, PERRLA. ABSENT: pallor, scleral icterus Ear exam: PRESENT: normal external ear exam Mouth exam: PRESENT: moist Respiratory exam: PRESENT: chest wall tenderness Cardiovascular exam: PRESENT: RRR. ABSENT: diastolic murmur, rubs, systolic m urmur GI/Abdominal exam: PRESENT: normal bowel sounds, soft. ABSENT: distended, guarding, mass, organomegaly, rebound, tenderness Extremities exam: ABSENT: pedal edema Neurological exam: PRESENT: alert, awake, oriented to person, oriented to place, oriented to time, oriented to situation, CN II-XII grossly intact. ABSENT: motor sensory deficit Psychiatric exam: PRESENT: appropriate affect, normal mood. ABSENT: homicidal ideation, suicidal ideation Skin exam: PRESENT: dry, warm Results Laboratory Results: 07/14/19 05:10 07/14/19 05:10 07/13/19 07/13/19 07/14/19 05:55 23:15 05:10 WBC 4.7 RBC 4.26 Hgb 12.6 Hct 36.1 MCV 85 MCH 29.6 MCHC 34.9 RDW 14.1 H Plt Count 196 Seg Neutrophils % Not Reportable Lymphocytes % Not Reportable Monocytes % Not Reportable Eosinophils % Not Reportable Basophils % Not Reportable Absolute Neutrophils Not Reportable Absolute Lymphocytes Not Reportable Absolute Monocytes Not Reportable Absolute Eosinophils Not Reportable Absolute Basophils Not Reportable Sodium 139.3 Potassium 3.3 L Chloride 104 Carbon Dioxide 27 Anion Gap 8 BUN 13 Creatinine 0.80 Est GFR ( Amer) > 60 Est GFR (Non-Af Amer) > 60 Glucose 106 Calcium 8.6 Magnesium Total Bilirubin 2.0 H AST 21 Alkaline Phosphatase 87 Total Protein 6.3 Albumin 3.5 Stool for White Cells NO WBCs SEEN 07/14/19 05:10 WBC RBC Hgb Hct MCV MCH MCHC RDW Plt Count Seg Neutrophils % Lymphocytes % Monocytes % Eosinophils % Basophils % Absolute Neutrophils Absolute Lymphocytes Absolute Monocytes Absolute Eosinophils Absolute Basophils Sodium 139.9 Potassium 4.1 Chloride 106 Carbon Dioxide 26 Anion Gap 8 BUN 6 L Creatinine 0.58 Est GFR ( Amer) > 60 Est GFR (Non-Af Amer) > 60 Glucose 110 Calcium 8.6 Magnesium 1.9 Total Bilirubin AST Alkaline Phosphatase Total Protein Albumin Stool for White Cells Impressions: Chest X-Ray 07/12/19 00:00 IMPRESSION: No focal consolidation or other evidence of acute cardiopulmonary process. Assessment & Plan - Diagnosis (1) Nausea, vomiting and diarrhea Is this a current diagnosis for this admission?: Yes (2) Fever and chills Is this a current diagnosis for this admission?: Yes (3) Probable sepsis Is this a current diagnosis for this admission?: Yes (4) HTN (hypertension) Qualifiers: Hypertension type: essential hypertension Qualified Code(s): I10 - Essential (primary) hypertension Is this a current diagnosis for this admission?: Yes (5) HLD (hyperlipidemia) Qualifiers: Hyperlipidemia type: unspecified Qualified Code(s): E78.5 - Hyperlipidemia, unspecified Is this a current diagnosis for this admission?: Yes (6) Gout, chronic, without tophus Qualifiers: Gout site: unspecified site Is this a current diagnosis for this admission?: Yes (7) Hypokalemia due to loss of potassium Is this a current diagnosis for this admission?: Yes (8) C. difficile diarrhea Is this a current diagnosis for this admission?: Yes Plan: Continue oral Vancomycin therapy. Advance diet to regular consistency. Start on Lactobacillus probiotic therapy. - Time Time Spent with patient: 25-34 minutes Medications reviewed and adjusted accordingly: Yes Anticipated discharge: Home Within: Other - Inpatient Certification Based on my medical assessment, after consideration of the patient's comorbidities, presenting symptoms, or acuity I expect that the services needed warrant INPATIENT care.: Yes I certify that my determination is in accordance with my understanding of Medicare's requirements for reasonable and necessary INPATIENT services [42 CFR 412.3e].: Yes Medical Necessity: Significant Comorbidiites Make Outpatient Treatment Too Risky, Need Close Monitoring Due to Risk of Patient Decompensation, Need For IV Fluids, Need For Continuous Telemetry Monitoring, Risk of Complication if Not Cared For in Hospital, Risk of Diagnosis Which Will Require Inpatient Eval/Care/Monitoring Post Hospital Care: D/C Single Resource Boss Documentation - Plan Summary Plan Summary: D/C IV Levofloxacin and Cefepime. Maintain on oral Vancomycin therapy. Advance diet and start on Lactobacillus probiotic therapy.
[2019-07-14] MEDS: LACTOBACILLUS ACIDOPHILUS 250 MG TAB PO SCH ×2 (10:37→17:32)
[2019-07-14] MEDS: BENAZEPRIL HCL 20 MG TABLET PO SCH (22:02)
[2019-07-14] MEDS: METOPROLOL SUCCINATE 50 MG TAB.SR.24H PO SCH (22:03)
[2019-07-14] MEDS: AMLODIPINE BESYLATE 10 MG TABLET PO SCH (22:03)
[2019-07-14] MEDS: NORMAL SALINE 1000 ML 1,000 ML IV PRN (22:04)
[2019-07-15] MEDS: VANCOMYCIN HCL INJ 500 MG VIAL PO SCH ×4 (00:07→18:00)
[2019-07-15] MEDS: ACETAMINOPHEN 325 MG TABLET PO PRN (08:27)
[2019-07-15] MEDS ORDERED: (PENDING PHARMACY ID) (Amlodipine Besylate/Benazepril [Amlodipine-Benazepril 10-20 Mg] 1 C PO SCH (10:00)
[2019-07-15] MEDS: LACTOBACILLUS ACIDOPHILUS 250 MG TAB PO SCH ×2 (10:17→18:01)
[2019-07-15] MEDS: METOPROLOL SUCCINATE 50 MG TAB.SR.24H PO SCH (10:18)
[2019-07-15] MEDS: ASPIRIN 81 MG TABLET, ENT COATED PO SCH (10:18)
[2019-07-15] MEDS: BENAZEPRIL HCL 20 MG TABLET PO SCH (10:18)
[2019-07-15] MEDS: AMLODIPINE BESYLATE 10 MG TABLET PO SCH (10:18)
--- NOTE | 2019-07-15 18:09 | PDOC PROGRESS REPORT ---
Subjective Progress Note for:: 07/15/19 Subjective:: Patient reported some improvement in her diarrhea intensity. No abdominal pain, nausea or vomiting. No chest pain or difficulty with breathing. No fever or chills. Reason For Visit: FAILED OUTPATIENT TREATMENT FOR PNEUMONIA Physical Exam Vital Signs: Temp Pulse Resp BP Pulse Ox 97.8 F 63 17 142/70 H 100 07/15/19 16:00 07/15/19 16:00 07/15/19 16:00 07/15/19 16:00 07/15/19 16:00 Intake & Output 07/14/19 07/15/19 07/16/19 06:59 06:59 06:59 Intake Total 1820 2456 1577 Output Total 800 752 Balance 1020 1704 1577 Weight 75.9 kg 76.7 kg Physical Exam: General appearance: PRESENT: no acute distress, obese Head exam: PRESENT: atraumatic, normocephalic Eye exam: PRESENT: conjunctiva pink, EOMI, PERRLA. ABSENT: pallor, scleral icterus Ear exam: PRESENT: normal external ear exam Mouth exam: PRESENT: moist Respiratory exam: PRESENT: chest wall tenderness Cardiovascular exam: PRESENT: RRR. ABSENT: diastolic murmur, rubs, systolic murmur GI/Abdominal exam: PRESENT: normal bowel sounds, soft. ABSENT: distended, guarding, mass, organomegaly, rebound, tenderness Extremities exam: PRESENT: Soft tissue infiltration by IV fluid in right hand and lower forearm region. ABSENT: pedal edema Neurological exam: PRESENT: alert, awake, oriented to person, oriented to place, oriented to time, oriented to situation, CN II-XII grossly intact. ABSENT: motor sensory deficit Psychiatric exam: PRESENT: appropriate affect, normal mood. ABSENT: homicidal ideation, suicidal ideation Skin exam: PRESENT: dry, warm Results Laboratory Results: 07/14/19 05:10 07/14/19 05:10 Impressions: Chest X-Ray 07/12/19 00:00 IMPRESSION: No focal consolidation or other evidence of acute cardiopulmonary process. Assessment & Plan - Diagnosis (1) Nausea, vomiting and diarrhea Is this a current diagnosis for this admission?: Yes (2) Fever and chills Is this a current diagnosis for this admission?: Yes (3) Probable sepsis Is this a current diagnosis for this admission?: Yes (4) HTN (hypertension) Qualifiers: Hypertension type: essential hypertension Qualified Code(s): I10 - Essential (primary) hypertension Is this a current diagnosis for this admission?: Yes (5) HLD (hyperlipidemia) Qualifiers: Hyperlipidemia type: unspecified Qualified Code(s): E78.5 - Hyperlipidemia, unspecified Is this a current diagnosis for this admission?: Yes (6) Gout, chronic, without tophus Qualifiers: Gout site: unspecified site Is this a current diagnosis for this admission?: Yes (7) Hypokalemia due to loss of potassium Is this a current diagnosis for this admission?: Yes (8) C. difficile diarrhea Is this a current diagnosis for this admission?: Yes - Time Time Spent with patient: 25-34 minutes Medications reviewed and adjusted accordingly: Yes Anticipated discharge: Home Within: Other - Inpatient Certification Based on my medical assessment, after consideration of the patient's comorbidities, presenting symptoms, or acuity I expect that the services needed warrant INPATIENT care.: Yes I certify that my determination is in accordance with my understanding of Medicare's requirements for reasonable and necessary INPATIENT services [42 CFR 412.3e].: Yes Medical Necessity: Significant Comorbidiites Make Outpatient Treatment Too [place], Need Close Monitoring Due to Risk of Patient Decompensation, Risk of Complication if Not Cared For in Hospital, Risk of Diagnosis Which Will Require Inpatient Eval/Care/Monitoring Post Hospital Care: D/C Service Engineer Documentation - Plan Summary Plan Summary: D/C IV fluid infusion. Encouraged oral hydration. Maintain on all other current medication management.
[2019-07-16] MEDS: VANCOMYCIN HCL INJ 500 MG VIAL PO SCH ×4 (01:38→17:37)
[2019-07-16] MEDS: LACTOBACILLUS ACIDOPHILUS 250 MG TAB PO SCH ×2 (09:18→17:37)
[2019-07-16] MEDS: AMLODIPINE BESYLATE 10 MG TABLET PO SCH (09:18)
[2019-07-16] MEDS: ASPIRIN 81 MG TABLET, ENT COATED PO SCH (09:18)
[2019-07-16] MEDS: BENAZEPRIL HCL 20 MG TABLET PO SCH (09:18)
[2019-07-16] MEDS: METOPROLOL SUCCINATE 50 MG TAB.SR.24H PO SCH (09:18)
--- NOTE | 2019-07-16 18:26 | PDOC DISCHARGE SUMMARY ---
General - Admit/Disc Date/PCP Admission Date/Primary Care Provider: 07/12/19 17:30 JAVIER CORONA MD Discharge Date: 07/16/19 - Discharge Diagnosis (1) Nausea, vomiting and diarrhea Is this a current diagnosis for this admission?: Yes (2) Fever and chills Is this a current diagnosis for this admission?: Yes (3) Probable sepsis Is this a current diagnosis for this admission?: Yes (4) HTN (hypertension) Is this a current diagnosis for this admission?: Yes (5) HLD (hyperlipidemia) Is this a current diagnosis for this admission?: Yes (6) Gout, chronic, without tophus Is this a current diagnosis for this admission?: Yes (7) Hypokalemia due to loss of potassium Is this a current diagnosis for this admission?: Yes (8) C. difficile diarrhea Is this a current diagnosis for this admission?: Yes - Additional Information Resuscitation Status: Full Code Discharge Diet: Cardiac Discharge Activity: Activity As Tolerated Prescriptions: Lactobacillus Acidophilus [Bacid 250 mg Tablet] 500 mg PO BID #60 tab Vancomycin HCl [Vancocin Inj 500 mg Vial] 250 mg PO Q6 #120 vial Home Medications: Amlodipine Besylate/Benazepril [Amlodipine-Benazepril 10-20 mg] 1 cap PO DAILY 07/14/19 Aspirin [Adult Low Dose Aspirin EC] 81 mg PO DAILY 07/14/19 Benzonatate 200 mg PO Q8 07/14/19 Metoprolol Succinate [Toprol XL 100 mg Tablet] 100 mg PO DAILY 07/14/19 Lactobacillus Acidophilus [Bacid 250 mg Tablet] 500 mg PO BID #60 tab 07/16/19 Vancomycin HCl [Vancocin Inj 500 mg Vial] 250 mg PO Q6 #120 vial 07/16/19 History of Present Illness History of Present Illness: JENNIFER HERNÁNDEZ is a 64 year old female known to my practice who presented to the office earlier today with recurrent intermittent episodes of chills, fever, and diaphoresis mostly during the night with daytime fatigue and tiredness. Patient reported development of diarrhea with multiple episodes of watery stool over the last several days. She was recently treated with antibiotic for possible community acquired pneumonia. She reported feeling better but upon completion of her antibiotic therapy her symptoms started again with intermittent fever and chills. She denied any significant coughing or sputum production. She denied any chest pain or shortness of breath. Her initial evaluation in the office revealed significant leukocytosis with left shift. She was advised hospitalization for possible failure of outpatient oral antibiotic therapy and concern for possible antibiotic associated diarrhea. Her morbidities include chronic gouty arthritis, hypertension, and hyperlipidemia. Hospital Course Hospital Course: Patient was admitted directly from the office following her presentation with fever, chills, and diarrhea. Her initial evaluation did suggest severe infectious process with elevated leukocytosis necessitating recommendation for further evaluation and [id number]. Initially unable to give stool specimen to evaluate for Clostridium difficile colitis but she was not able to give specimen. She was thereafter presumptive civer her with broad spectrum antibiotic. Her stool evaluation did revealed C. difficle toxin induced diarrhea., She was managed with oral Vancomycin therapy with significant. She will continue on oral Vancomycin therapy for more 10 days. She will follow up in the office as instructed upon discharge. Physical Exam Vital Signs: Temp Pulse Resp BP Pulse Ox 97.7 F 70 15 124/64 98 07/16/19 12:33 07/16/19 14:00 07/16/19 08:00 07/16/19 12:33 07/16/19 12:33 Intake & Output 07/15/19 07/16/19 07/17/19 06:59 06:59 06:59 Intake Total 2456 2544 876 Output Total 752 3 Balance 1704 2544 873 Weight 76.7 kg 77.1 kg Physical Exam: General appearance: PRESENT: no acute distress, obese Head exam: PRESENT: atraumatic, normocephalic Eye exam: PRESENT: conjunctiva pink, EOMI, PERRLA. ABSENT: pallor, scleral icterus Ear exam: PRESENT: normal external ear exam Mouth exam: PRESENT: moist Respiratory exam: PRESENT: chest wall tenderness Cardiovascular exam: PRESENT: RRR. ABSENT: diastolic murmur, rubs, systolic murmur GI/Abdominal exam: PRESENT: normal bowel sounds, soft. ABSENT: distended, guarding, mass, organomegaly, rebound, tenderness Extremities exam: ABSENT: pedal edema Neurological exam: PRESENT: alert, awake, oriented to person, oriented to place, oriented to time, oriented to situation, CN II-XII grossly intact. ABSENT: motor sensory deficit Psychiatric exam: PRESENT: appropriate affect, normal mood. ABSENT: homicidal ideation, suicidal ideation Skin exam: PRESENT: dry, warm Results Laboratory Results: 07/14/19 05:10 07/14/19 05:10 Impressions: Chest X-Ray 07/12/19 00:00 IMPRESSION: No focal consolidation or other evidence of acute cardiopulmonary process. Qualifiers - * PATIENT BEING DISCHARGED WITH ANY OF THE FOLLOWING DIAGNOSIS: No Acute Heart Failure - Is this a Heart Failure Patient?: No Plan Discharge Plan: Discharge home today. Follow up in the office as instructed upon discharge.
[2019-07-16 19:11] VITALS: BP 146/66
== END 2019-07-16 19:29 | disposition home or self-care (01) | DRG 872 ==
LOC: 5 17:30
PROVIDERS: ADMIT Internal Medicine Geriatric Medicine; ATTEND Internal Medicine Geriatric Medicine
DX: A41.9 Sepsis, unspecified organism (principal); A04.72 Enterocolitis due to Clostridium difficile, not specified as recurrent; I10 Essential (primary) hypertension; E78.5 Hyperlipidemia, unspecified; M1A.9XX0 Chronic gout, unspecified, without tophus (tophi); E66.9 Obesity, unspecified; E87.6 Hypokalemia; Z68.32 Body mass index [BMI] 32.0-32.9, adult; Z82.49 Family history of ischemic heart disease and other diseases of the circulatory system
CPT/HCPCS: 36415; 71046; 80048; 80053; 81001; 83605; 83735; 85025; 87040; 87045; 87205; 87493; 89055; J0692; J1956; J3370; J3490; J7030

== ENCOUNTER → 2020-06-27 | Outpatient (CLI) | payer BC ==
[2020-06-27 11:45] VITALS: BP 124/98
--- NOTE | 2020-06-27 11:45 | ER [facility] ASSESSMENT REPORT ---
Intake - In the Last 14 days Have you traveled outside [place]?: No Have you been in close contact with someone CONFIRMED: Yes Worked in Healthcare?: No - Symptoms Subjective Fever([place] feverish): No Chills: No Muscule Aches: No Runny Nose: No Sore Throat: No Cough (New or worsening chronic cough): No Shortness of breath: No Nausea or Vomiting: No Headache: No Abdominal Pain: No Diarrhea(3 or more loose stools in last 24 hours): No - Do you have any of the following Chronic lung disease: Asthma or emphysema or COPD: No Cystic Fibrosis: No Diabetes: No High Blood Pressure: Yes Cardiovascular Disease: Yes Chronic Kidney Disease: No Chronic Liver Disease: No Chronic blood disorder like Sickle Cell Disease: No Weak immune system due to disease or medication: No Neurologic condition that limits movement: No Developmental delay - Moderate to Severe: No Recent (within past 2 weeks) or current : No Morbid Obesity (>100 pounds over ideal weight): No - Objective Temperature: 98.5 F Pulse Rate: 74 Respiratory Rate: 18 Blood Pressure: 124/98 O2 Sat by Pulse Oximetry: 96 Objective: Given above, testing performed: If Testing Performed: Test Specimen Type Sent to General - General Information source: Patient Notes: Patient presents to the [facility] for screening for the coronavirus. Patient denies any current symptoms at this time but does have recent known exposure to someone who tested positive. Patient does have a history of underlying high blood pressure. - Related Data Allergies/Adverse Reactions: No Known Allergies Allergy (Unverified 06/25/12 21:58) Past Medical History - General Information source: Patient - Social History Smoking Status: Never Smoker Family History: Reviewed & Not Pertinent - Past Medical History Cardiac Medical History: Reports: Hx Hypercholesterolemia, Hx Hypertension Renal/ Medical History: Denies: Hx Peritoneal Dialysis Musculoskeletal Medical History: Reports Hx Gout Past Surgical History: Reports: Hx Cardiac Catheterization, Hx Section Physical Exam - Notes Notes: The patient was evaluated during the global Covid 19 pandemic, and that diagnosis was suspected/considered upon their initial presentation. Their evaluation, treatment and testing was consistent with current guidelines for patients who present with complaints or symptoms that may be related to Covid 19. Full physical exam could not be performed due to covid 19 isolation protocols. Constitutional: Nontoxic appearance, no acute distress Eyes: Nonicteric, extraocular movements intact, sclera clear Cardiovascular: Heart rate and rhythm regular, no JVD Respiratory: Breath sounds clear bilaterally, nonlabored breathing, no use of accessory muscles, no tachypnea Gastrointestinal: Abdomen not distended Muculoskeletal: Moves all extremities well Skin: Normal color Neuro: Awake alert oriented, normal speech Psych: Normal mood and affect Diagnostic Results Laboratory Results: Patient presents with upper respiratory symptoms worrisome for possible Covid 19. Patient does not have emergency worrying symptoms such as difficulty breathing, shortness of breath, chest pain, pressure, confusion or cyanosis. Patient appears suitable for discharge as vital signs are stable and patient is nontoxic in appearance. Good return precautions have been discussed with patient, patient verbalized understanding and is agreeable with discharge plan of care at this time. Patient Education/Counseling Counseling/Education: Patient was provided with discharge information including: As a person under investigation for Covid 19, the [facility], division of public health advises you to adhere to the following guidance until your test results are reported to you. If your test result is positive, you will receive additional information from your provider and your local health department at that time. Remain at home until you are cleared by the health provider or public health authorities. Keep a log of visitors to your home, notify any visitors to your home of your isolation status. If you plan to move to a new address or leave the county, notify the local health department in your County. Call your doctor or seek care if you have an urgent medical need. Before seeking medical care, call ahead to get instructions from the provider before arriving at the medical office clinic or hospital. Notify them that you are being tested for the virus that causes Covid 19 so that arrangements can be made, as necessary, to prevent transmission to others in the healthcare setting. Next, notify the local health department in your county. If a medical emergency arises and you need to call 911, inform the first responders that you are being tested for the virus that causes Covid 19. Next, notify the local health department in your county. [facility] Discharge - Discharge Clinical Impression: Encounter for screening laboratory testing for COVID-19 virus in asymptomatic patient Condition: Stable Disposition: Home; Selfcare
== END ==
LOC: RDC 11:09
PROVIDERS: ATTEND Nurse Practitioner Family
DX: Z20.828 Contact with and (suspected) exposure to other viral communicable diseases (principal)
CPT/HCPCS: 87635; C9803; 99201; 99211

== ENCOUNTER → 2020-12-08 | Outpatient (CLI) | payer MEDICARE, BC ==
--- NOTE | 2020-12-08 14:23 | WOMENS IMAGING REPORT ---
EXAM DESCRIPTION: BILAT SCREENING MAMMO W/CAD IMAGES COMPLETED DATE/TIME: 12/08/2020 1:18 pm REASON FOR STUDY: ROUTINE BILATERAL SCREENING;Z12.31 Z12.31 ENCNTR SCREEN MAMMOGRAM FOR MALIGNANT N EOPLASM OF DRE COMPARISON: 2011 and subsequent EXAM PARAMETERS: Standard craniocaudal and mediolateral oblique views of each breast recorded using digital acquisition. Read with the assistance of CAD. 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 FINDINGS: No suspicious masses, suspicious calcifications or architectural distortion. No areas of c oncern. IMPRESSION: NEGATIVE MAMMOGRAM. BIRADS 1 BREAST DENSITY: b. There are scattered areas of fibroglandular density. BIRAD: ASSESSMENT: 1 NEGATIVE RECOMMENDATION: ROUTINE SCREENING COMMENT: The patient has been notified of the results by letter per MQSA requirements. Additional no tification policies are in place for contacting patient with suspicious or incomplete findings. Quality ID #[id number]: The [employer] recommends an annual screening mammogram for women aged 40 years or over. This facility utilizes a reminder system to ensure that all patients receive reminder letters, and/or direct phone calls for appointments. This includes reminders for routine scr eening mammograms, diagnostic mammograms, or other Breast Imaging Interventions when appropriate. Th is patient will be placed in the appropriate reminder system. TECHNICAL DOCUMENTATION: FINDING NUMBER: (1) ASSESSMENT: (1) JOB ID: [id number] 2010 [employer]- All Rights Reserved Reading location - IP/workstation name: [email or web address]
== END ==
LOC: WI 13:09
PROVIDERS: ATTEND Nurse Practitioner Adult Health
DX: Z12.31 Encounter for screening mammogram for malignant neoplasm of breast (principal)
CPT/HCPCS: 77067